=== PATIENT | female | born 1965 | race Caucasian/White ===

== ENCOUNTER 2018-08-10 13:04 | Day surgery (SDC) | payer OTHER ==
[2018-08-10] MEDS ORDERED: ONDANSETRON 4 MG INJ IV (15:00)
[2018-08-10] MEDS ORDERED: LIDOCAINE 2% (SDV) 5 ML INJ (15:46)
[2018-08-10] MEDS ORDERED: PROPOFOL 20 ML ×2 (15:46)
[2018-08-10] MEDS ORDERED: EPHEDrine 25 MG/5 ML SYG (16:21)
== END 2018-08-10 18:47 | disposition home or self-care (01) ==
LOC: GIL 13:04
DX: Z12.11 Encounter for screening for malignant neoplasm of colon (principal); K29.50 Unspecified chronic gastritis without bleeding; K64.8 Other hemorrhoids
CPT/HCPCS: 43239; 88305; 88312